=== PATIENT | male | born 1970 | race Caucasian/White ===

== ENCOUNTER 2024-08-11 10:10 | Day surgery (SDC) | payer BC ==
[2024-08-11] MEDS: Lactated Ringers 1,000 ML IV SCH (10:26)
[2024-08-11] MEDS ORDERED: fentaNYL 100 MCG/2 ML SDV ONE (10:57)
[2024-08-11] MEDS ORDERED: Propofol 200 MG/20 ML SDV ONE (10:57)
== END 2024-08-11 13:34 | disposition home or self-care (01) ==
LOC: VM.SDS 10:10
PROVIDERS: ATTEND Family Medicine
DX: Z12.11 Encounter for screening for malignant neoplasm of colon (principal); K63.5 Polyp of colon; K57.30 Diverticulosis of large intestine without perforation or abscess without bleeding; I10 Essential (primary) hypertension; N40.1 Benign prostatic hyperplasia with lower urinary tract symptoms; E78.49 Other hyperlipidemia; E66.9 Obesity, unspecified; Z68.30 Body mass index [BMI] 30.0-30.9, adult; Z87.891 Personal history of nicotine dependence; Z79.899 Other long term (current) drug therapy
CPT/HCPCS: 00811; 45380; J2704; J3010; J7120